=== PATIENT | male | born 1990 | race Two or more races ===

== ENCOUNTER 2024-08-28 20:14 | Emergency (ER) | payer OTHER ==
[~2024-08-28] VITALS: Ht 185.4 cm; Wt 135.6 kg
--- NOTE | 2024-08-28 20:47 | ED.PDOC ---
HPI (NEURO) HPI Comments 33-year-old male who came to emergency room for weakness. Patient denies any medical problems. States he was at work earlier, around noon, when he noted that the left side of his face felt weak, left facial asymmetry, and when he drank water, the water dripped from the left side his mouth. He denies any pain. Denies any headaches or dizziness. Denies any blurring of vision or slurred speech. Chief Complaint: Left Sided Weakness Time Seen by MD: 20:46 Reviewed Notes: Nurses Notes Information Source: Patient Mode of Arrival: Ambulatory Severity: Moderate Dizziness/Weakness Severity: Does not affect activitie Headache Severity: None Timing: Hours Duration: Since onset Weakness Location: Facial (Left facial) Onset: With light exertion Circumstances: Spontaneous Symptoms: Weakness (Left facial) Associated Signs and Symptoms: Weakness (Left facial) Past Medical History PAST MEDICAL HISTORY: Denies Surgical History (Other): Left eye surgery to correct strabismus, ear cystectomy Family History Family History: Reviewed,noncontributory to illness Social History Smoker: Non-Smoker Alcohol: Denies ETOH Use Drugs: Denies Drug Use Lives In: Home Constitutional: denies: chills, diaphoresis, fatigue, fever, malaise, sweats, weakness, others EENTM: denies: blurred vision, double vision, ear bleeding, ear discharge, ear drainage, ear pain, ear ringing, eye pain, eye redness, hearing loss, mouth pain, mouth swelling, nasal discharge, nose bleeding, nose congestion, nose pain, photophobia, tearing, throat pain, throat swelling, voice changes, others Respiratory: denies: cough, hemoptysis, orthopnea, SOB at rest, shortness of breath, SOB with excertion, stridor, wheezing, others Cardiovascular: denies: chest pain, dizzy spells, diaphoresis, Dyspnea on exertion, edema, irregular heart beat, left arm pain, lightheadedness, palpitations, PND, syncope, others Gastrointestinal: denies: abdomen distended, abdominal pain, blood streaked bowels, constipated, diarrhea, dysphagia, difficulty swallowing, hematemesis, melena, nausea, poor appetite, poor fluid intake, rectal bleeding, rectal pain, vomiting, others Genitourinary: denies: burning, dysuria, flank pain, frequency, hematuria, incontinence, penile discharge, penile sore, pain, testicle pain, testicle swelling, urgency, others Neurological: reports: left sided weakness (Left facial); denies: dizziness, fainting, headache, left sided numbness, numbness, paresthesia, pre-existing deficit, right sided numbness, right sided weakness, seizure, speech problems, tingling, tremors, weakness, others Musculoskeletal: denies: back pain, gout, joint pain, joint swelling, muscle pain, muscle stiffness, neck pain, others Integumetry: denies: bruises, change in color, change in hair/nails, dryness, laceration, lesions, lumps, rash, wounds, others Allergic/Immunocompromised: denies: Difficulty Healing, Frequent Infections, Hives, Itching, others Hematologic/Lymphatic: denies: anemia, blood clots, easy bleeding, easy bruising, swollen glands, others Endocrine: denies: excessive hunger, excessive sweating, excessive thirst, excessive urination, flushing, intolerance to cold, intolerance to heat, unexplained weight gain, unexplained weight loss, others Psychiatric: denies: anxiety, bipolar disorder, depression, hopeless, panic disorder, schizophrenia, sleepless, suicidal, others Physical Exam General Appearance: No Apparent Distress, Obese HEENT: PERRL/EOMI, Other (Left facial droop) Neck: Full Range of Motion, Non-Tender, Normal Inspection, Supple Respiratory: Lungs Clear, No Accessory Muscle Use, No Respiratory Distress, Normal Breath Sounds Cardiovascular: No Edema, No JVD, Regular Rate/Rhythm Breast Exam: Deferred Gastrointestinal: Non Tender, Soft Genitalia: Deferred Pelvic: Deferred Rectal: Deferred Extremities: Normal inspection, Normal range of motion, Non-tender, No pedal edema Neurologic: Alert (Oriented x4), hand plug shaper II-XII nml as Tested (Except for cranial nerve 7. There is left facial weakness including inability to completely raise left eyebrow), Motor Weakness (Left facial), Normal Affect, Normal Mood, No Sensory Deficits Cerebellar Function: NOT DONE Reflexes: NOT DONE Skin: Dry, Normal Color, Warm Lymphatic: NOT DONE Was a procedure done? Was a procedure done?: No Differential Diagnosis (SZ) CVA: Klein's Palsy, CVA, Electrolyte Imbalance, Encephalopathy, Hypoglycemia, Hypoxemia, Mass Lesion, TIA X-Ray, Labs, Meds, VS Vital Signs Date Time Temp Pulse Resp B/P (MAP) Pulse Ox O2 Delivery O2 Flow Rate FiO2 08/28/24 22:34 98.4 85 18 141/83 (102) 97 98.4 08/28/24 20:35 98.6 97 16 158/82 (107) 99 98.6 Lab Test 08/28/24 20:45 08/28/24 20:36 Range/Units White Blood Count 10.0 4.4-10.8 10^3/uL Red Blood Count 5.23 4.5-5.90 10^6/uL Hemoglobin 15.8 13.5-17.5 g/dL Hematocrit 45.9 41.0-53.0 % Mean Corpuscular Volume 87.8 80.0-100.0 fL Mean Corpuscular Hemoglobin 30.3 28.0-32.0 pg Mean Corpuscular Hemoglobin Concent 34.5 32.0-36.0 g/dL Red Cell Distribution Width 13.5 11.8-14.3 % Platelet Count 206 140-450 10^3/uL Mean Platelet Volume 9.3 6.9-10.8 fL Neutrophils (%) (Auto) 62.1 37.0-80.0 % Lymphocytes (%) (Auto) 29.3 10.0-50.0 % Monocytes (%) (Auto) 5.9 0.0-12.0 % Eosinophils (%) (Auto) 2.1 0.0-7.0 % Basophils (%) (Auto) 0.6 0.0-2.0 % Neutrophils # (Auto) 6.2 1.6-8.6 10 ^3/uL Lymphocytes # (Auto) 2.9 0.4-5.4 10 ^3/uL Monocytes # (Auto) 0.6 0-1.3 10 ^3/uL Eosinophils # (Auto) 0.2 0-0.8 10 ^3/uL Basophils # (Auto) 0.1 0-0.2 10 ^3/uL Nucleated Red Blood Cells 0.1 % Sodium Level 142 136-145 mmol/L Potassium Level 3.6 3.5-5.1 mmol/L Chloride Level 104 98-107 mmol/L Carbon Dioxide Level 28 20-31 mmol/L Anion Gap 10 5-15 Blood Urea Nitrogen 13 9-23 mg/dL Creatinine 1.06 0.700-1.30 mg/dL Glomerular Filtration Rate Calc 96 >90 mL/min BUN/Creatinine Ratio 12.3 10.0-20.0 Serum Glucose 117 H 74-106 mg/dL Calcium Level 10.0 8.7-10.4 mg/dL POC Glucose 116 H 70-106 mg/dl EXAM: CT HEAD WITHOUT CONTRAST INDICATION: L facial droop TECHNIQUE: CT of the head without intravenous contrast. Radiation Dose Information: CT Dose: CTDI volume is 68.47 mGy. Dose-length product is 1348.95 mGy*cm The dose indicators for CT are the volume Computed Tomography (CT) Dose Index (CTDIvol) and the Dose Length Product (DLP), and are measured in units of mGy and mGy-cm, respectively. These indicators are not patient dose, but values generated from the CT scanner acquisition factors. The report includes radiation exposure data for exposures received during this examination. COMPARISON: None FINDINGS: There is no evidence of acute intracranial hemorrhage, extra-axial collection, mass effect, midline shift, herniation or hydrocephalus. The ventricles, sulci and cisterns are age appropriate. The rothman-white differentiation is intact. Patchy periventricular and subcortical white matter hypoattenuation is nonspecific but may be related to small vessel ischemic disease. Mucosal thickening left maxillary sinus with antrectomy. and mastoid air cells are clear. The surrounding soft tissues and osseous structures are unremarkable. IMPRESSION: 1. No acute intracranial abnormality. X-Ray, Labs, Meds, VS Comment 33-year-old male with no significant past medical history presenting with left facial weakness Vitals are remarkable for BP 158/82 Exam remarkable for left facial weakness, not sparing the forehead Rhythm strip independently interpreted by me: Sinus rhythm, rate 97, no ectopy. CT head unremarkable CBC normal, basic metabolic panel unremarkable No acute treatment indicated in ED Patient is well-appearing with stable vitals. 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 Patient appears stable for discharge with close outpatient follow-up with his primary physician. Patient also referred to Dr. Denis, neurology. Rx valacyclovir, artificial tears, prednisone Time of 1ST Reevaluation: 20:44 Reevaluation 1ST: Unchanged Patient Education/Counseling: Diagnosis, Treatment Family Education/Counseling: No Family Present Departure 1 Departure Time of Disposition: 23:52 Impression: Primary Impression: Klein palsy Disposition: 01 HOME / SELF CARE / HOMELESS Condition: Stable Referrals: AISHA DENIS MD Additional Instructions: Your blood tests were unremarkable. Your CT scan was unremarkable. I have prescribed medication for Klein Palsy. Follow-up with your primary doctor in 1-2 days. Follow-up with Dr. Denis, neurology as soon as possible. e-Prescriptions Artificial Tear Solution (ARTIFICIAL TEARS) Tears Holly 2 DROP LEFTEYE PRN PRN, #15 ML 5 Refills Prn dryness Prov: TIMUR WIHTE MD 08/29/24 Prednisone (Prednisone) 20 Mg Tab 20 MG PO DAILY for 10 Days, #19 TAB 3 tabs p.o. daily x3 days, then 2 tabs daily x3 days, then 1 tab daily x4 days Prov: TIMUR WHITE MD 08/29/24 Valacyclovir Hcl (Valacyclovir Hcl) 500 Mg Tab 2 TAB PO TID for 10 Days, #60 TAB 11 Refills Prov: TIMUR WHITE MD 08/29/24 Discharged With: Relative Critical Care Note Critical Care Time?: No Stability Stability form required: No Heart Score Heart Score: Heart Score Response (Comments) Value History N/A 0 EKG N/A 0 Age N/A 0 Risk Factors N/A 0 Troponin N/A 0 Total 0 I personally scribed for TIMUR WHITE MD ([email or web address]) on 08/28/24 at 20:47. Electronically submitted by Kj Torres ([email or web address]). I personally scribed for TIMUR WHITE MD) on 08/28/24 at 21:51. Electronically submitted by Kj Torres ([email or web address]). TIMUR WHITE MD Aug 28, 2024 20:47
[2024-08-28 20:53] LABS: Basophils # (auto) 0.1 10 ^3/uL (0-0.2); Basophils % (auto) 0.6 % (0.0-2.0); Eosinophils # (auto) 0.2 10 ^3/uL (0-0.8); Eosinophils % (auto) 2.1 % (0.0-7.0); Hematocrit 45.9 % (41.0-53.0); Hemoglobin 15.8 g/dL (13.5-17.5); Lymphocytes # (auto) 2.9 10 ^3/uL (0.4-5.4); Lymphocytes % (auto) 29.3 % (10.0-50.0); Mean Corpuscular Hemoglobin 30.3 pg (28.0-32.0); Mean Corpuscular Hgb Conc. 34.5 g/dL (32.0-36.0); Mean Corpuscular Volume 87.8 fL (80.0-100.0); Monocytes # (auto) 0.6 10 ^3/uL (0-1.3); Monocytes % (auto) 5.9 % (0.0-12.0); Neutrophils # (auto) 6.2 10 ^3/uL (1.6-8.6); Neutrophils % (auto) 62.1 % (37.0-80.0); Nucleated Red Blood Cells % 0.1 %; Platelet Count (auto) 206 10^3/uL (140-450); Red Blood Cells 5.23 10^6/uL (4.5-5.90); Red Cell Distribution Width 13.5 % (11.8-14.3)
[2024-08-28 21:01] LABS: Chloride 104 mmol/L (98-107); Potassium 3.6 mmol/L (3.5-5.1); Sodium 142 mmol/L (136-145)
[2024-08-28 21:02] LABS: Anion Gap 10 (5-15); Carbon Dioxide 28 mmol/L (20-31)
[2024-08-28 21:07] LABS: BUN/Creatinine Ratio 12.3 (10.0-20.0); Blood Urea Nitrogen 13 mg/dL (9-23)
--- NOTE | 2024-08-28 21:10 | DVH ---
EXAM: CT HEAD WITHOUT CONTRAST INDICATION: L facial droop TECHNIQUE: CT of the head without intravenous contrast. Radiation Dose Information: CT Dose: CTDI volume is 68.47 mGy. Dose-length product is 1348.95 mGy*cm The dose indicators for CT are the volume Computed Tomography (CT) Dose Index (CTDIvol) and the Dose Length Product (DLP), and are measured in units of mGy and mGy-cm, respectively. These indicators are not patient dose, but values generated from the CT scanner acquisition factors. The report includes radiation exposure data for exposures received during this examination. COMPARISON: None FINDINGS: There is no evidence of acute intracranial hemorrhage, extra-axial collection, mass effect, midline s hift, herniation or hydrocephalus. The ventricles, sulci and cisterns are age appropriate. The rothman-white differentiation is intact. Patchy periventricular and subcortical white matter hypoattenuation is nonspecific but may be related to small vessel ischemic disease. Mucosal thickening left maxillary sinus with antrectomy. and mastoid air cells are clear. The surrounding soft tissues and osseous structures are unremarkable. IMPRESSION: 1. No acute intracranial abnormality.
[2024-08-28 21:50] LABS: Glucose 117 mg/dL (74-106)
[2024-08-28 22:34] VITALS: BP 141/83; PULSE 85; RESP 18; TEMP 98.4; O2SAT 97
[2024-08-29] MEDS ORDERED: PRED20TA2 PO (00:25)
[2024-08-29] MEDS ORDERED: VALA500T33 PO (00:25)
[2024-08-29] MEDS ORDERED: ARTISOL13 LEFTEYE (00:25)
== END 2024-08-29 01:01 | disposition home or self-care (01) ==
LOC: ER 20:14
DX: G51.0 Bell's palsy (principal); Z79.899 Other long term (current) drug therapy
CPT/HCPCS: 36415; 70450; 80048; 82947; 82962; 85025